=== PATIENT | female | born 2000 | race Two or more races ===

== ENCOUNTER 2024-10-19 18:04 | Emergency (ER) | payer MEDICAID, SELFPAY ==
[2024-10-19 18:14] VITALS: BP 130/86; PULSE 77; RESP 18; TEMP 36.8; O2SAT 99; BMI 19.8
--- NOTE | 2024-10-19 18:33 | EDNOTE_ITS ---
ED Dental RME/HPI General Chief complaint: Dental/Oral/Throat Stated complaint: DENTAL PAIN Time Seen by Provider: 10/19/24 18:25 Arrival date/time: 10/19/24 18:04 24F with no significant PMH presents to ED with several weeks of R lower dental pain. Patient is waiting for referral for root canal. Patient has been taking 800 mg ibuprofen w/o relief. Limitations: no limitations Related Data Allergies Allergy/AdvReac Type Severity Reaction Status Date / Time Penicillins Allergy Mild Rash Verified 09/15/24 07:46 Review of Systems Review of Systems Systems Reviewed: All systems reviewed, normal except as documented Constitutional Constitutional: Reports system reviewed and no additional complaints, except as documented, Denies fever(s) and Denies headache(s) ENT Ears, Nose, Mouth, and Throat: Reports as per HPI, Reports dental pain, Denies disequilibrium and Denies headache(s) Cardiovascular Cardiovascular: Reports system reviewed and no additional complaints, except as documented, Denies chest pain and Denies dyspnea Respiratory Respiratory: Reports system reviewed and no additional complaints, except as documented, Denies cough and Denies dyspnea Gastrointestinal Gastrointestinal: Reports system reviewed and no additional complaints, except as documented, Denies abdominal pain, Denies nausea and Denies vomiting Neurologic Neurologic: Reports system reviewed and no additional complaints, except as documented, Denies confusion, Denies disequilibrium and Denies headache(s) Psychiatric Psychiatric: Denies confusion Past Medical History Past Medical History NEUROLOGIC: Negative Neurological Disorders CARDIAC: Negative Cardiac Disorders or Congestive Heart Failure RESPIRATORY: Negative Chronic Obstructive Pulmonary Disease (COPD) or Asthma GASTROINTESTINAL: Negative Gastrointestinal Disorders or Hepatitis GENITOURINARY: Negative Genitourinary Disorders or Renal Disease REPRODUCTIVE: Negative Pelvic Inflammatory Disease MUSCULOSKELETAL: Negative Musculoskeletal Disorders ENDOCRINE: Negative Endocrine Disorders, Diabetes Mellitus Type 1 or Diabetes Mellitus Type 2 HEMATOLOGIC: Negative Blood Disorders PSYCHO/SOCIAL: Negative Depression, Anxiety or Depression OTHER HISTORY: Positive Hospitalization (apendectomy); Negative Autoimmune Disease, Down Syndrome, Developmental Delay, Shingles, Falls, Anesthesia Reactions, MRSA, VRSA, Vancomycin-Resistant Enterococci, Human Immunodeficiency Virus (HIV), Chicken Pox, Measles, Mumps, Rubella (Niuean Measles), Pertussis, Clostridium Difficile or Cancer Family History FAMILY HISTORY: Positive Family Cardiac Disorders (b rother heart murmer); Negative Family Psychiatric Problems, Family Respiratory Disorders, Family Gastrointestinal Problems, Family Cancer, Family Surgery or Family Anesthesia Reaction Surgical History SURGICAL: Positive Abdominal Surgery; Negative Cardiac Surgery, Endocrine Surgery, Ear Surgery, Nephrectomy, Joint Replacement, Neurologic Surgery or Section Social History SMOKING STATUS: Never smoker SECOND HAND EXPOSURE: No ED Exam General Limitations: Present no limitations General appearance: Present alert and in no apparent distress Head Head exam: Present atraumatic Eye Eye exam: Present normal appearance, PERRL and EOMI ENT ENT exam: Present normal oropharynx and mucous membranes moist Expanded ENT Exam Teeth exam: Present other (fillings) Neck Neck exam: Present normal inspection, full ROM and trachea midline Chest Chest inspection: Present normal inspection and symmetric chest wall rise Respiratory Respiratory exam: Present normal lung sounds bilaterally Cardiovascular Cardiovascular exam: Present regular rate, normal rhythm and normal heart sounds Abdominal Exam Abdominal exam: Present soft and normal bowel sounds Extremities Exam Extremities exam: Present normal inspection and full ROM Back Exam Back exam: Present normal inspection and full ROM Neurological Exam Neurological exam: Present alert, oriented X3 and CN II-XII intact Psychiatric Psychiatric exam: Present normal affect and normal mood Skin Skin exam: Present warm, dry, intact and normal color Course Quality Measures none Orders Category Date Time Status HYDROcodone*/APAP 5/325 [[place] 5/325] Med 10/19/24 18:25 Discontinued 1 tab PO X1 ONE Vital Signs Vital signs: Vital Signs Temperature 98.3 F 10/19/24 18:14 Pulse Rate 77 10/19/24 18:14 Respiratory Rate 18 10/19/24 18:14 Blood Pressure 130/86 H 10/19/24 18:14 Pulse Oximetry (%) 99 10/19/24 18:14 Oxygen Delivery Method Room Air 10/19/24 18:14 O2 at 99% on RA and WNLs Dental / Oral MDM Narrative MDM Narrative:: 24F with no significant PMH presents to ED with several weeks of R lower dental pain. Patient is waiting for referral for root canal. Patient has been taking 800 mg ibuprofen w/o relief. Physical exam reveals dental fillings but no obvious gingival swelling. Patient is afebrile, calm, and alert. Meds and certified genetic counselor given. Patient data External records reviewed:: [facility] previous records Clinical information provided by:: patient Social determinants that could affect healthcare access:: none Patient has the following chronic illnesses:: none How is presenting disease/condition affected by chronic disease/condition?: no chronic disease Evaluation data The following diagnostics were reviewed and interpreted by me:: other (specify) (none) Lab and/or radiology exams considered but not ordered:: not ordered Interpretation Summary: n/a Medications / Prescriptions Medications or Prescriptions considered but not ordered:: ordered Medication administrations:: Medication Administration History Discontinued Medications Hydrocodone Bitart/Acetaminophen (Hydrocodone/Apap 5/325 Tablet) 1 tab PO X1 ONE Stop: 10/19/24 18:26 above Consultations Consultation(s) initiated? (list below): No Diagnosis Dental Differential Diagnosis: gingival abscess, dental caries, toothache, dental abscess, fracture of tooth and aphthous ulcer Most likely diagnosis given after review of the tests above:: dental pain Admission Indicated Admission indicated?: not indicated Admission Request Was there a request for admission?: No Disposition Plan Disposition Plan: Discharge Discharge Attestation Discharge Attestation: The patient and all family members were given an opportunity to ask questions and understood the discharge instructions. Discharge instructions specifically effects, indications for sooner follow up or return to the emergency department, and the expected course of current diagnosis. Patient condition: Stable Discharge Plan Plan Patient Disposition: HOME (Self Care) Disposition Comment: Stable Problem List Clinical Impression: Toothache Patient/Caregiver Discharge Instructions Additional Instructions: Please follow-up with PCP within 24-48 hours and return immediately if symptoms worsen. If need additional opioids, need to see PCP for Rx. Print Language: Bolivian Stand Alone Forms: Patient Portal Info Letter FRANCISCO/WINSOME Supervising Physician FRANCISCO/WINSOME Supervising Physician: Dr. Horta
[2024-10-19] MEDS: HYDROcodone/APAP 5/325 TABLET 1 TAB PO (18:42)
== END 2024-10-19 18:51 | disposition home or self-care (01) ==
PROVIDERS: Emergency Provider Emergency Medicine
DX: K08.89 Other specified disorders of teeth and supporting structures (principal)
CPT/HCPCS: 99283; A9270

== ENCOUNTER 2024-12-07 15:21 | Emergency (ER) | payer MEDICAID, SELFPAY ==
[2024-12-07 15:23] VITALS: BMI 19.8
[2024-12-07 16:23] VITALS: BP 136/83; PULSE 77; RESP 16; TEMP 36.8; O2SAT 100
--- NOTE | 2024-12-07 16:40 | PD.EDHA ---
ED Headache RME/HPI General Chief Complaint: Headache Stated Complaint: HEADACHE Time Seen by Provider: 12/07/24 16:12 Source: patient Arrival date/time: 12/07/24 15:21 This is a 24-year-old female presents to the emergency department with complaints of generalized headache. Does report has had a history of migraine headaches and has not been taking her medication as directed. Denies fever, chills no neck pain no neurologic symptoms. Related Data Previous Rx's ?Medication ?Instructions ?Recorded ibuprofen 600 mg tablet 600 mg PO QID PRN pain #14 tabs 12/14/24 ondansetron 4 mg disintegrating 4 mg PO Q6H PRN nausea and 12/14/24 tablet vomiting #10 tabs Allergies Allergy/AdvReac Type Severity Reaction Status Date / Time Penicillins Allergy Mild Rash Verified 12/14/24 10:30 Review of Systems Review of Systems Systems Reviewed: All systems reviewed, normal except as documented Narrative Review of Systems: Gen: No fever, no chills, no weight loss, + positive headache EYES: No discharge, no visual changes, no pain HEENT: No ear pain, no congestion, no sore throat PULM: No shortness of breath, no cough, no congestion CV: No chest pain, no dyspnea on exertion, no palpitations GI: No nausea, no vomiting, no diarrhea, no pain, no constipation : No frequency, no urgency,? no dysuria Musc/skel: No joint pain, no back pain Skin: No rash? ED Exam Narrative Physical exam: General: Sittiing in Exam table in no acute distress, answering questions appropriately HENT: normocephalic, atraumatic, EOMI, PERRLA, moist mucous membranes Chest: chest wall is nontender Cardiac: regular rate and rhythm, normal S1 and S2, no murmurs, rubs, or gallops, capillary refill ?2 seconds Pulmonary: clear to auscultation bilaterally, no wheezing, crackles, or rhonchi Abdominal: active bowel sounds, soft, nontender, nondistended Neuro: A&OX3, CN II-XII intact, sensation grossly intact bilaterally in UE and LE. Skin: no rashes, no ecchymosis Ext: no lower extremity edema Course Quality Measures none Orders Category Date Time Status Ibuprofen Tab [Motrin Tab] Med 12/07/24 16:39 Discontinued 600 mg PO X1 ONE Vital Signs Vital signs: Vital Signs Temperature 98.2 F 12/07/24 16:23 Pulse Rate 77 12/07/24 16:23 Respiratory Rate 16 12/07/24 16:23 Blood Pressure 136/83 H 12/07/24 16:23 Pulse Oximetry (%) 100 12/07/24 16:23 Oxygen Delivery Method Room Air 12/07/24 16:23 Headache Patient data External records reviewed:: [facility] previous records Clinical information provided by:: patient Social determinants that could affect healthcare access:: none Patient has the following chronic illnesses:: none How is presenting disease/condition affected by chronic disease/condition?: no chronic disease Evaluation data The following diagnostics were reviewed and interpreted by me:: other (specify) Lab and/or radiology exams considered but not ordered:: none Interpretation Summary: none Medications / Prescriptions Medications or Prescriptions considered but not ordered:: none Medication administrations:: Medication Administration History Discontinued Medications Ibuprofen (Ibuprofen Tab 600 Mg Tablet) 600 mg PO X1 ONE Stop: 12/07/24 16:40 Last Admin: 12/07/24 17:41 Dose: Not Given Documented By: Non-Admin Reason: Other, see note All medications administered and effective Consultations Consultation(s) initiated? (list below): No Diagnosis Differential diagnosis headache: migraine, tension headache, headache and sinusitis Most likely diagnosis given after review of the tests above:: Migraine Admission Indicated Admission indicated?: not indicated Explain why admission is indicated or not indicated:: none Admission Request Was there a request for admission?: No Disposition Plan Disposition Plan: Discharge Discharge Attestation Discharge Attestation: The patient and all family members were given an opportunity to ask questions and understood the discharge instructions. Discharge instructions specifically effects, indications for sooner follow up or return to the emergency department, and the expected course of current diagnosis. Patient condition: Stable Discharge Plan Plan Patient Disposition: HOME (Self Care) Patient condition on transfer: Stable Prescriptions/Referrals Prescriptions/Med Rec: No Action ondansetron 4 mg tablet,disintegrating 4 mg PO Q6H PRN (Reason: nausea and vomiting) Qty: 10 0RF ibuprofen 600 mg tablet 600 mg PO QID PRN (Reason: pain) Qty: 14 0RF Problem List Clinical Impression: Migraine Patient/Caregiver Discharge Instructions Discharge Activity: activity as tolerated Education Materials: ED Headache, Migraine, Classic Additional Instructions: - Please you can take [id number] Tylenol reporting for migraine headaches. Please increase fluid intake. Make a appointment with your primary doctor. As discussed you can return to the emergency department for further evaluation or imaging. If you have any worsening symptoms or change in condition. Print Language: Kiswahili Stand Alone Forms: [employer] Award Info., Patient Portal Info Letter PA/[employer]WAIN'[employer] MATE Supervising Physician PA/WINSOME Supervising Physician: Dr. Mijares
== END 2024-12-07 16:52 | disposition home or self-care (01) ==
PROVIDERS: Emergency Provider Emergency Medicine; PCP Nurse Practitioner Family
DX: G43.909 Migraine, unspecified, not intractable, without status migrainosus (principal)
CPT/HCPCS: 99281

== ENCOUNTER 2024-12-14 10:27 | Emergency (ER) | payer MEDICAID, SELFPAY ==
[2024-12-14 10:28] VITALS: BMI 19.8
[2024-12-14 10:34] VITALS: BP 135/90; PULSE 127; RESP 18; TEMP 37.4; O2SAT 99; BMI 19.8
[2024-12-14] MEDS: ONDANSETRON ODT 4 MG TABRAP PO (10:49)
[2024-12-14] MEDS: IBUPROFEN TAB 600 MG TABLET PO (10:50)
--- NOTE | 2024-12-14 10:55 | PD.EDRME ---
Rapid Medical Screening Exam RME Arrival date/time: 12/14/24 10:27 24-year-old female presents emergency department today complains of generalized bodyaches headache and fever since Monday as well as diarrhea ongoing x 1 month Chief Complaint: Flu Like Symptoms Time Seen by Provider: 12/14/24 10:31 Vital signs: Vital Signs Temperature 99.4 F 12/14/24 10:34 Pulse Rate 127 H 12/14/24 10:34 Respiratory Rate 18 12/14/24 10:34 Blood Pressure 135/90 H 12/14/24 10:34 Pulse Oximetry (%) 99 12/14/24 10:34 Oxygen Delivery Method Room Air 12/14/24 10:34
[2024-12-14 11:35] LABS: Basophils % (Auto) 1 % (0-2.5); Eosinophils # (Auto) 0.1 Thou/mm3 (0.0-0.5); Eosinophils % (Auto) 2 % (0-10); Hematocrit 38.1 % (36.0-46.0); Hemoglobin 13.2 g/dL (12.0-16.0); Immature Granulocytes % (Auto) 0 % (0-0); Lymphocytes # (Auto) 0.4 Thou/mm3 (1.0-4.8); Lymphocytes % (Auto) 19 % (10-50); Mean Corpuscular HGB Conc 34.6 g/dl (31.0-37.0); Mean Corpuscular Hemoglobin 30.3 pg (25.0-35.0); Mean Corpuscular Volume 87 fL (80-100); Monocytes # (Auto) 0.3 Thou/mm3 (0.0-0.8); Monocytes % (Auto) 16 % (0-12); Neutrophils # (Auto) 1.3 Thou/mm3 (1.8-7.7); Neutrophils % (Auto) 62 % (37-80); Nucleated Red Blood Cell % 0 /100 WBC (0); Platelet Count 143 Thou/mm3 (140-440); RDW Standard Deviation 37.9 fL (36.4-46.3); Red Blood Count 4.36 Miln/mm3 (4.00-5.20)
[2024-12-14 11:38] LABS: White Blood Count 2.1 Thou/mm3 (3.6-11.0)
[2024-12-14 12:03] LABS: Alanine Aminotransferase 13 U/L (10-49); Albumin, Serum 4.5 gm/dL (3.5-5.0); Albumin/Globulin Ratio 1.4 (1.2-2.2); Alkaline Phosphatase 44 U/L (46-116); Anion Gap 10 (7-16); Aspartate Amino Transferase 15 U/L (0-34); BUN/Creatinine Ratio 8 Ratio (12-20); Bilirubin,Total 0.3 mg/dL (0.3-1.2); Blood Urea Nitrogen 5 mg/dL (9-23); Calcium 9.1 mg/dL (8.3-10.6); Calcium (Corrected) 9.1 mg/dL (8.5-10.1); Carbon Dioxide 24.1 mMol/L (20.0-31.0); Chloride 105 mMol/L (98-107); Creatinine (Component) 0.6 mg/dL (0.6-1.3); Estimated Creatinine Clearance 132.6 mL/min (>60); Globulin 3.2 gm/dL (2.3-3.5); Glucose 94 mg/dL (74-106); Osmolality,Calculated 274 (275-295); Potassium 3.3 mMol/L (3.4-5.1); Sodium 139 mMol/L (136-145); Total Protein 7.7 gm/dL (5.7-8.2); eGFR > 60 See Note
[2024-12-14 13:00] VITALS: BP 124/75; PULSE 98; RESP 18; TEMP 37.2; O2SAT 97
--- NOTE | 2024-12-14 13:10 | PC.NURSE ---
Patient with complaint of nausea and diarrhea for the past week. Patient denies fever. No medical history and does not take meds.
--- NOTE | 2024-12-14 13:30 | EDNOTE_ITS ---
Upper Respiratory Inf. RME/HPI General Chief Complaint: Flu Like Symptoms Stated Complaint: BODYACHES AND CHILLS SINCE MONDAY Time Seen by Provider: 12/14/24 10:31 Arrival date/time: 12/14/24 10:27 This is a 24-year-old female that is brought in by mother with complaints of generalized bodyaches, weakness, headache, fever, diarrhea, vomiting that started 5 days ago. Patient reports no sick contacts. Patient reports she has had diarrhea on and off for the last month. Patient has a history of appendectomy in the past. RME / HPI RME / HPI Narrative: 12/14/24 10:27 24-year-old female presents emergency department today complains of generalized bodyaches headache and fever since Monday as well as diarrhea ongoing x 1 month Related Data Previous Rx's ?Medication ?Instructions ?Recorded ibuprofen 600 mg tablet 600 mg PO QID PRN pain #14 t abs 12/14/24 ondansetron 4 mg disintegrating 4 mg PO Q6H PRN nausea and 12/14/24 tablet vomiting #10 tabs Allergies Allergy/AdvReac Type Severity Reaction Status Date / Time Penicillins Allergy Mild Rash Verified 12/14/24 10:30 Review of Systems Review of Systems Systems Reviewed: All systems reviewed, normal except as documented Past Medical History Past Medical History NEUROLOGIC: Negative Neurological Disorders CARDIAC: Negative Cardiac Disorders or Congestive Heart Failure RESPIRATORY: Negative Chronic Obstructive Pulmonary Disease (COPD) or Asthma GASTROINTESTINAL: Negative Gastrointestinal Disorders or Hepatitis GENITOURINARY: Negative Genitourinary Disorders or Renal Disease REPRODUCTIVE: Negative Pelvic Inflammatory Disease MUSCULOSKELETAL: Negative Musculoskeletal Disorders ENDOCRINE: Negative Endocrine Disorders, Diabetes Mellitus Type 1 or Diabetes Mellitus Type 2 HEMATOLOGIC: Negative Blood Disorders PSYCHO/SOCIAL: Negative Depression, Anxiety or Depression OTHER HISTORY: Positive Hospitalization (apendectomy); Negative Autoimmune Disease, Down Syndrome, Developmental Delay, Shingles, Falls, Anesthesia Reactions, MRSA, VRSA, Vancomycin-Resistant Enterococci, Human Immunodeficiency Virus (HIV), Chicken Pox, Measles, Mumps, Rubella ([place]anese Measles), Pertussis, Clostridium Difficile or Cancer Family History FAMILY HISTORY: Positive Family Cardiac Disorders (b rother heart murmer); Negative Family Psychiatric Problems, Family Respiratory Disorders, Family Gastrointestinal Problems, Family Cancer, Family Surgery or Family Anesthesia Reaction Surgical History SURGICAL: Positive Abdominal Surgery; Negative Cardiac Surgery, Endocrine Surgery, Ear Surgery, Nephrectomy, Joint Replacement, Neurologic Surgery or Section Social History SMOKING STATUS: Never smoker SECOND HAND EXPOSURE: No ED Exam General General appearance: Present alert and in no apparent distress Head Head exam: Present atraumatic Eye Eye exam: Present normal appearance, PERRL and EOMI ENT ENT exam: Present normal exam, normal oropharynx and mucous membranes moist Neck Neck exam: Present normal inspection, full ROM and trachea midline Chest Chest inspection: Present normal inspection and symmetric chest wall rise Respiratory Respiratory exam: Present normal lung sounds bilaterally Cardiovascular Cardiovascular exam: Present regular rate, normal rhythm and normal heart sounds Abdominal Exam Abdominal exam: Present soft Extremities Exam Extremities exam: Present normal inspection and full ROM Back Exam Back exam: Present normal inspection and full ROM Neurological Exam Neurological exam: Present alert, oriented X3 and CN II-XII intact Psychiatric Psychiatric exam: Present normal affect and normal mood Skin Skin exam: Present warm, dry, intact and normal color Course Quality Measures none Orders Category Date Time Status Bedside COVID-19 Antigen Test NOW Care 12/14/24 10:38 Completed Bedside Influenza A&B Antigen Test NOW Care 12/14/24 10:38 Completed IV [Insert IV] STAT Care 12/14/24 14:19 Completed CBC Stat Lab 12/14/24 11:08 Completed CMP [Comprehensive Metabolic Panel] Stat Lab 12/14/24 11:08 Completed HCG Qualitative,Urine Stat Lab 12/14/24 14:00 Completed Mineral Screen Stat Lab 12/14/24 11:08 Completed UA, C/S IF [Urinalysis, C/S if Indicated] Stat Lab 12/14/24 14:00 Completed Ibuprofen Tab [Motrin Tab] Med 12/14/24 10:38 Discontinued 600 mg PO X1 ONE Ondansetron Odt [Zofran Odt] Med 12/14/24 10:38 Discontinued 4 mg PO X1 ONE Sodium Chloride 0.9% 1000 ml [Ns] 1,000 ml Med 12/14/24 14:19 Discontinued IV 999 mls/hr Sodium Chloride 0.9% 500 ml [Ns] 500 ml Med 12/14/24 13:42 Discontinued IV 999 mls/hr Vital Signs Vital signs: Vital Signs Temperature 99.4 F 12/14/24 10:34 Pulse Rate 127 H 12/14/24 10:34 Respiratory Rate 18 12/14/24 10:34 Blood Pressure 135/90 H 12/14/24 10:34 Pulse Oximetry (%) 99 02/01/25 10:34 Oxygen Delivery Method Room Air 12/14/24 10:34 Upper Respiratory Infection MDM Narrative MDM Narrative:: I spoke to patient and mother at length. Patient felt better with Zofran and ibuprofen given to her earlier. Patient given a liter of fluid with improvement of symptoms of weakness. I reviewed labs with patient. Patient's white cells are low. We checked monspot and it was positive which could be culprit of low wbc. I told patient to hydrate and rest at home. Come back to ED if symotoms change or worsen. Patient data External records reviewed:: [facility] previous records Clinical information provided by:: patient Social determinants that could affect healthcare access:: none Patient has the following chronic illnesses:: none How is presenting disease/condition affected by chronic disease/condition?: no chronic disease Evaluation data The following diagnostics were reviewed and interpreted by me:: lab results Lab and/or radiology exams considered but not ordered:: see note Interpretation Summary: none Medications / Prescriptions Medications or Prescriptions considered but not ordered:: none Medication administrations:: Medication Administration History Discontinued Medications Sodium Chloride (Ns) 500 mls @ 999 mls/hr IV .Q31M ONE Stop: 12/14/24 14:12 Last Admin: 12/14/24 14:18 Dose: Not Given Documented By: DO Non-Admin Reason: Cancelled by Provider Sodium Chloride (Ns) 1,000 mls @ 999 mls/hr IV .Q1H1M ONE Stop: 12/14/24 15:19 Last Infusion: 12/14/24 16:00 Dose: Infused Documented By: Admin: 12/14/24 14:38 Dose: 999 mls/hr Documented By: DO Ibuprofen (Ibuprofen Tab 600 Mg Tablet) 600 mg PO X1 ONE Stop: 12/14/24 10:39 Last Admin: 12/14/24 10:50 Dose: 600 mg Documented By: DO Ondansetron HCl (Ondansetron Odt 4 Mg Tabrap) 4 mg PO X1 ONE; Protocol Stop: 12/14/24 10:39 Last Admin: 12/14/24 10:49 Dose: 4 mg Documented By: DO see mar Consultations Consultation(s) initiated? (list below): No Diagnosis Upper Respiratory Differential Diagnosis: upper respiratory infection, croup, otitis media, viral infection, influenza and other (mono) Most likely diagnosis given after review of the tests above:: mono Admission Indicated Admission indicated?: not indicated Admission Request Was there a request for admission?: No Disposition Plan Disposition Plan: Discharge Discharge Attestation Discharge Attestation: The patient and all family members were given an opportunity to ask questions and understood the discharge instructions. Discharge instructions specifically effects, indications for sooner follow up or return to the emergency department, and the expected course of current diagnosis. Patient condition: Stable Discharge Plan Plan Patient Disposition: HOME (Self Care) Patient condition on transfer: Stable Prescriptions/Referrals Prescriptions/Med Rec: New ondansetron 4 mg tablet,disintegrating 4 mg PO Q6H PRN (Reason: nausea and vomiting) Qty: 10 0RF ibuprofen 600 mg tablet 600 mg PO QID PRN (Reason: pain) Qty: 14 0RF Referrals: Alycia Pedraza PA-C [Primary Care Provider] - In 1 week Problem List Clinical Impression: Weakness, Leukopenia, Vomiting, Upper respiratory infection, viral, Mononucleosis Patient/Caregiver Discharge Instructions Discharge Activity: activity as tolerated Education Materials: Self-Care for Vomiting and Diarrhea, ED Mononucleosis Additional Instructions: Follow-up with primary provider in 1 to 2 days. Come back to the emergency room if symptoms change or worsen. Drink plenty of fluids. Print Language: Hebrew Stand Alone Forms: Renee Award Info., Patient Portal Info Letter FRANCISCO/WINSOME Supervising Physician DAVID Supervising Physician: darian
[2024-12-14 14:20] LABS: Collection Type, Urine Clean Catch
[2024-12-14 14:31] LABS: Bilirubin,Urine Negative (Negative); Blood,Urine 3+ (Negative); Clarity,Urine Turbid (Clear/Hazy); Color,Urine Yellow (Lt Yel-Yel); Culture Indicated,Urine Not Indicated; Glucose, Urine Negative (Negative); Ketones,Urine Trace (Negative); Leukocyte Esterase,Urine Positive (Negative); Nitrite,Urine Negative (Negative); PH,Urine 6.5 (5.0-7.0); Protein,Urine 1+ (Neg - Trace); RBC,Urine 5 /hpf (0-3); Specific Gravity,Urine 1.024 (1.001-1.035); Squamous Epithelial Cell,Urine 9 /hpf (0-5); Urobilinogen,Urine Negative mg/dL (0.0-1.0); WBC,Urine 4 /hpf (0-5)
[2024-12-14 14:32] LABS: HCG Qualitative,Urine Negative
[2024-12-14] MEDS: SODIUM CHLORIDE 0.9% 1000 ML 1,000 ML 999 ML IV (14:38)
[2024-12-14 15:57] LABS: Mono Screen Positive (Negative)
== END 2024-12-14 17:02 | disposition home or self-care (01) ==
PROVIDERS: Nurse Practitioner Family; Nurse Practitioner Primary Care; Emergency Provider Emergency Medicine; PCP Physician Assistant
DX: B27.90 Infectious mononucleosis, unspecified without complication (principal); D72.819 Decreased white blood cell count, unspecified
CPT/HCPCS: 36415; 80053; 81001; 81025; 85025; 86308; 87400; 87811; 96360; 99284; J7030; Q0162; A9270

== ENCOUNTER 2025-10-25 20:45 | Emergency (ER) | payer MEDICAID, SELFPAY ==
[2025-10-25 20:45] VITALS: BMI 19.5
[2025-10-25 21:00] VITALS: BP 121/87; PULSE 112; RESP 16; TEMP 39.5; O2SAT 97
--- NOTE | 2025-10-25 21:06 | XR_ITS ---
EXAMINATION: AP chest single view TECHNIQUE: AP portable upright chest single view Date and time: May 25, 2025, 2119 hours INDICATIONS: Shortness of breath today. FINDINGS: Normal heart size Lungs are clear. Osseous structures are intact IMPRESSION: No active disease
[2025-10-25 21:30] VITALS: TEMP 39.5
[2025-10-25 21:30] LABS: Lactate (Lactic Acid) 1.4 mMol/L (0.4-2.0)
[2025-10-25] MEDS: IBUPROFEN TAB 600 MG TABLET PO (21:30)
[2025-10-25] MEDS: ACETAMINOPHEN 325 MG TABLET 650 MG PO (21:30)
[2025-10-25 21:31] LABS: Basophils # (Auto) 0.0 Thou/mm3 (0.0-0.2); Basophils % (Auto) 0 % (0-2.5); Eosinophils # (Auto) 0.1 Thou/mm3 (0.0-0.5); Eosinophils % (Auto) 1 % (0-10); Hematocrit 39.2 % (36.0-46.0); Hemoglobin 13.3 g/dL (12.0-16.0); Immature Granulocytes Auto 0.03 Thou/mm3 (0.00-0.00); Lymphocytes # (Auto) 1.1 Thou/mm3 (1.0-4.8); Lymphocytes % (Auto) 16 % (10-50); Mean Corpuscular HGB Conc 33.9 g/dl (31.0-37.0); Mean Corpuscular Hemoglobin 30.2 pg (25.0-35.0); Mean Corpuscular Volume 89 fL (80-100); Monocytes # (Auto) 0.7 Thou/mm3 (0.0-0.8); Monocytes % (Auto) 10 % (0-12); Neutrophils # (Auto) 5.1 Thou/mm3 (1.8-7.7); Neutrophils % (Auto) 72 % (37-80); Nucleated Red Blood Cell # 0.00 Thou/mm3 (0.00-0.00); Nucleated Red Blood Cell % 0 /100 WBC (0); Platelet Count 208 Thou/mm3 (140-440); RDW Standard Deviation 37.0 fL (36.4-46.3); Red Blood Count 4.41 Miln/mm3 (4.00-5.20); White Blood Count 7.1 Thou/mm3 (3.6-11.0)
[2025-10-25] MEDS: SODIUM CHLORIDE 0.9% 1000 ML 1,000 ML 999 ML IV (21:42)
[2025-10-25] MEDS: cefTRIAXone 2 GM in SODIUM CHLORIDE 0.9% (Popper) 50 ML IV (21:53)
[2025-10-25 21:54] LABS: Alanine Aminotransferase < 7 U/L (10-49); Albumin, Serum 5.0 gm/dL (3.5-5.0); Albumin/Globulin Ratio 1.6 (1.2-2.2); Alkaline Phosphatase 46 U/L (46-116); Anion Gap 11 (7-16); Aspartate Amino Transferase 23 U/L (0-34); BUN/Creatinine Ratio 10 Ratio (12-20); Bilirubin,Total 0.5 mg/dL (0.3-1.2); Blood Urea Nitrogen 7 mg/dL (9-23); Calcium 9.3 mg/dL (8.3-10.6); Calcium (Corrected) 9.3 mg/dL (8.5-10.1); Carbon Dioxide 22.6 mMol/L (20.0-31.0); Chloride 103 mMol/L (98-107); Creatinine (Component) 0.7 mg/dL (0.6-1.3); Estimated Creatinine Clearance 110.9 mL/min (>60); Globulin 3.1 gm/dL (2.3-3.5); Glucose 93 mg/dL (74-106); Osmolality,Calculated 271 (275-295); Potassium 4.2 mMol/L (3.4-5.1); Sodium 137 mMol/L (136-145); Total Protein 8.1 gm/dL (5.7-8.2); eGFR > 60 See Note
[2025-10-25 22:13] LABS: Mono Screen Negative (Negative)
[2025-10-25 22:54] VITALS: BP 102/62; PULSE 106; RESP 16; TEMP 37.4; O2SAT 97
[2025-10-25 22:55] VITALS: TEMP 37.4
--- NOTE | 2025-10-25 23:21 | PD.EDFEVER ---
ED Fever RME/HPI General Chief Complaint: Fever Stated Complaint: FEVER Time Seen by Provider: 10/25/25 20:51 Arrival date/time: 10/25/25 20:45 This is a case of 25-year-old female with history of mononucleosis came in in the emergency room due to on and off fever of 102 at home associated with sore throat and productive cough denies any urinary symptoms but with lower back pain patient denies any injury or trauma denies any abdominal pain nausea vomiting no drooling of saliva no hoarseness of voice no shortness of breath no chest pain Limitations: no limitations Related Data Previous Rx's ?Medication ?Instructions ?Recorded ibuprofen 600 mg tablet 600 mg PO QID PRN pain #14 tabs 12/14/24 ondansetron 4 mg disintegrating 4 mg PO Q6H PRN nausea and 12/14/24 tablet vomiting #10 tabs clarithromycin 500 mg tablet 500 mg PO BID 10 days #20 tabs 10/25/25 ibuprofen 800 mg tablet 800 mg PO Q8H PRN pain #20 tabs 10/25/25 lidocaine HCl 2 % mucosal solution 10 ml PO Q4HR PRN mouth pain #100 10/25/25 (Lidocaine Viscous) mL Allergies Allergy/AdvReac Type Severity Reaction Status Date / Time Penicillins Allergy Mild Rash Verified 12/14/24 10:30 Review of Systems Review of Systems Systems Reviewed: All systems reviewed, normal except as documented Constitutional Constitutional: Reports system reviewed and no additional complaints, except as documented and Reports as per HPI ENT Ears, Nose, Mouth, and Throat: Reports system reviewed and no additional complaints, except as documented and Reports as per HPI Cardiovascular Cardiovascular: Reports system reviewed and no additional complaints, except as documented and Reports as per HPI Respiratory Respiratory: Reports system reviewed and no additional complaints, except as documented and Reports as per HPI Gastrointestinal Gastrointestinal: Reports system reviewed and no additional complaints, except as documented and Reports as per HPI Musculoskeletal Musculoskeletal: Reports system reviewed and no additional complaints, except as documented and Reports as per HPI Neurologic Neurologic: Reports system reviewed and no additional complaints, except as documented and Reports as per HPI Past Medical History Past Medical History NEUROLOGIC: Negative Neurological Disorders CARDIAC: Negative Cardiac Disorders or Congestive Heart Failure RESPIRATORY: Negative Chronic Obstructive Pulmonary Disease (COPD) or Asthma GASTROINTESTINAL: Negative Gastrointestinal Disorders or Hepatitis GENITOURINARY: Negative Genitourinary Disorders or Renal Disease REPRODUCTIVE: Negative Pelvic Inflammatory Disease MUSCULOSKELETAL: Negative Musculoskeletal Disorders ENDOCRINE: Negative Endocrine Disorders, Diabetes Mellitus Type 1 or Diabetes Mellitus Type 2 HEMATOLOGIC: Negative Blood Disorders PSYCHO/SOCIAL: Negative Depression, Anxiety or Depression OTHER HISTORY: Positive Hospitalization (apendectomy); Negative Autoimmune Disease, Down Syndrome, Developmental Delay, Shingles, Falls, Anesthesia Reactions, MRSA, VRSA, Vancomycin-Resistant Enterococci, Human Immunodeficiency Virus (HIV), Chicken Pox, Measles, Mumps, Rubella ([place] Measles), Pertussis, Clostridium Difficile or Cancer Family History FAMILY HISTORY: Positive Family Cardiac Disorders (b rother heart murmer); Negative Family Psychiatric Problems, Family Respiratory Disorders, Family Gastrointestinal Problems, Family Cancer, Family Surgery or Family Anesthesia Reaction Surgical History SURGICAL: Positive Abdominal Surgery; Negative Cardiac Surgery, Endocrine Surgery, Ear Surgery, Nephrectomy, Joint Replacement, Neurologic Surgery or Section Social History SMOKING STATUS: Never smoker SECOND HAND EXPOSURE: No Physical Exam General Limitations: no limitations General appearance: alert, in no apparent distress and other (Patient is awake alert oriented not in distress nontoxic looking well-hydrated well nourished) Head Head exam: atraumatic, normocephalic and normal inspection Eye Eye exam: Present normal appearance, PERRL and EOMI ENT ENT exam: Present normal exam, normal oropharynx, mucous membranes moist and other (Nose and ear exam normal bilateral tonsils were swollen red with exudate in the right no drooling of saliva no muffled voice no hot potato voice no peritonsillar abscess no Artemio's angina) Neck Neck exam: Present normal inspection, full ROM, trachea midline and lymphadenopathy (Lymphadenopathy on the right anterior neck negative for meningeal sign); Absent tenderness, meningismus or thyromegaly Chest Chest inspection: Present normal inspection and symmetric chest wall rise; Absent tenderness Respiratory Respiratory exam: Present normal lung sounds bilaterally and other; Absent respiratory distress, wheezes, stridor, accessory muscle use or prolonged expiratory phase Cardiovascular Cardiovascular exam: Present regular rate, normal rhythm and normal heart sounds; Absent bradycardia, tachycardia, irregular rhythm, systolic murmur or diastolic murmur Abdominal Exam Abdominal exam: Present soft and normal bowel sounds; Absent distention, tenderness, guarding, rebound, rigidity, diminished bowel sounds, hyperactive bowel sounds, hypoactive bowel sounds or organomegaly Extremities Exam Extremities exam: Present normal inspection and full ROM Back Exam Back exam: Present normal inspection and full ROM Neurological Exam Neurological exam: Present alert, oriented X3, CN II-XII intact, normal gait and reflexes normal; Absent motor sensory deficit Psychiatric Psychiatric exam: Present normal affect and normal mood Skin Skin exam: Present warm, dry, intact, normal color and other (Excellent skin turgor) ED Exam General Limitations: Present no limitations General appearance: Present alert, in no apparent distress and other (Patient is awake alert oriented not in distress nontoxic looking well-hydrated well nourished) Head Head exam: Present atraumatic, normocephalic and normal inspection Eye Eye exam: Present normal appearance, PERRL and EOMI ENT ENT exam: Present normal exam, normal oropharynx, mucous membranes moist and other (Nose and ear exam normal bilateral tonsils were swollen red with exudate in the right no drooling of saliva no muffled voice no hot potato voice no peritonsillar abscess no Artemio's angina) Neck Neck exam: Present normal inspection, full ROM, trachea midline and lymphadenopathy (Lymphadenopathy on the right anterior neck negative for meningeal sign); Absent tenderness, meningismus or thyromegaly Chest Chest inspection: Present normal inspection and symmetric chest wall rise; Absent tenderness Respiratory Respiratory exam: Present normal lung sounds bilaterally and other; Absent respiratory distress, wheezes, stridor, accessory muscle use or prolonged expiratory phase Cardiovascular Cardiovascular exam: Present regular rate, normal rhythm and normal heart sounds; Absent bradycardia, tachycardia, irregular rhythm, systolic murmur or diastolic murmur Abdominal Exam Abdominal exam: Present soft and normal bowel sounds; Absent distention, tenderness, guarding, rebound, rigidity, diminished bowel sounds, hyperactive bowel sounds, hypoactive bowel sounds or organomegaly Extremities Exam Extremities exam: Present normal inspection and full ROM Back Exam Back exam: Present normal inspection and full ROM Neurological Exam Neurological exam: Present alert, oriented X3, CN II-XII intact, normal gait and reflexes normal; Absent motor sensory deficit Psychiatric Psychiatric exam: Present normal affect and normal mood Skin Skin exam: Present warm, dry, intact, normal color and other (Excellent skin turgor) Course Quality Measures none Orders Category Date Time Status Bedside COVID-19 Antigen Test NOW Care 10/25/25 21:06 Active Bedside Influenza A&B Antigen Test NOW Care 10/25/25 21:06 Completed Bedside STREP Test NOW Care 10/25/25 21:08 Completed Insert IV STAT Care 10/25/25 21:41 Active XR chest 1V Stat Exams 10/25/25 21:06 Completed Blood Culture (Lab) Stat Lab 10/25/25 21:40 Received CBC Stat Lab 10/25/25 21:24 Completed CMP [Comprehensive Metabolic Panel] Stat Lab 10/25/25 21:24 Completed Lactic Acid [Lactate (Lactic Acid)] Stat Lab 10/25/25 21:24 Completed [place] Screen Stat Lab 10/25/25 21:24 Completed Acetaminophen Tab [Tylenol Tab] Med 10/25/25 21:08 Discontinued 650 mg PO X1 ONE Ibuprofen Tab [Motrin Tab] Med 10/25/25 21:08 Discontinued 600 mg PO X1 ONE Sodium Chloride 0.9% 1000 ml [Ns] 1,000 ml Med 10/25/25 21:15 Discontinued IV 999 mls/hr cefTRIAXone [Rocephin] 2 gm Med 10/25/25 21:15 Discontinued SODIUM CHLORIDE 0.9% (Popper) [Ns 0.9% (P)] 50 ml IV X1 Vital Signs Vital signs: Vital Signs Temperature 103.1 F H 10/25/25 21:00 Pulse Rate 112 H 10/25/25 21:00 Respiratory Rate 16 10/25/25 21:00 Blood Pressure 121/87 H 10/25/25 21:00 Pulse Oximetry (%) 97 10/25/25 21:00 Oxygen Delivery Method Room Air 10/25/25 21:00 Oxygen saturation 97% in room air Fever MDM Narrative MDM Narrative:: This is a case of 25-year-old female with history of mononucleosis came in in the emergency room due to on and off fever of 102 at home associated with sore throat and productive cough denies any urinary symptoms but with lower back pain patient denies any injury or trauma denies any abdominal pain nausea vomiting no drooling of saliva no hoarseness of voice no shortness of breath no chest pain physical examination patient vital signs noted tachycardic and febrile thus a code sepsis was called patient is not tachypneic not hypoxic oxygen saturation is ranging 96 to 98% BP stable patient is awake alert oriented not in distress nontoxic looking well-hydrated negative for meningeal sign HEENT exam showed nose and ears were normal bilateral tonsils were swollen red with exudate on the right tonsil no drooling of saliva no peritonsillar abscess no Artemio's Centor criteria 1/4 no muffled voice no hot potato voice patient have lymphadenopathy on the right anterior neck negative for meningeal sign lung sounds no crackles no wheezing no rhonchi no retraction no stridor abdominal exam is benign nonsurgical no guarding no rebound no rigidity neurological exam normal awake alert oriented x 4 no focal deficit GCS 15/15 steady gait blood test showed no leukocytosis lactic acid is normal thus patient is not having no anemia kidney and liver function is normal no electrolyte imbalance urinalysis not done per patient request chest x-ray is normal patient denies initially patient was given a bolus of 1 L normal saline and ceftriaxone 2 g patient states that she had allergy to penicillin when she is a child I discussed with the patient regarding the thing ceftriaxone treatment and still agreed patient was continually monitored for any allergic reaction and no allergic reaction noted based on my physical examination and history patient fever is due to strep throat patient was discharged with clarithromycin 500 mg twice a day lidocaine viscous for sore throat and ibuprofen for pain patient will continue to monitor her condition at home continue to monitor temperature at home for any fever she will take Motrin Tylenol warm saline care earlier keep hydrated she will follow-up with PCP in 2 days for reevaluation and for any worsening symptoms or any emergent concern return precaution in the ER is advised Patient was discharged with comfortable condition walking with stable gait. Patient verbalized no further complains explained diagnosis and answered patient question. Patient is comfortable with the proposed management plan including the need to follow up with his/her primary care physician and any specialist if applicable Discussed patient for any urgent condition or worsening sx, He/She needed to go to emergency room immediately or call 911. Patient acknowledge the responsibility to follow up as instructed and to monitor her/his symptoms. For any persistence of the symptoms for more than 3-5 days return precaution advised. Discussed the result of the test and was given printed discharge instruction Patient data External records reviewed:: [facility] previous records Clinical information provided by:: patient Social determinants that could affect healthcare access:: none Patient has the following chronic illnesses:: None How is presenting disease/condition affected by chronic disease/condition?: no chronic disease Evaluation data The following diagnostics were reviewed and interpreted by me:: lab results and radiology exam(s) Lab and/or radiology exams considered but not ordered:: Reviewed Interpretation Summary: Reviewed Medications / Prescriptions Medications or Prescriptions considered but not ordered:: Given Medication administrations:: Medication Administration History Discontinued Medications Acetaminophen (Acetaminophen 325 Mg Tablet) 650 mg PO X1 ONE Stop: 10/25/25 21:09 Last Admin: 10/25/25 21:30 Dose: 650 mg Documented By: Sodium Chloride (Ns) 1,000 mls @ 999 mls/hr IV .Q1H1M ONE Stop: 10/25/25 22:15 Last Infusion: 10/25/25 22:37 Dose: Infused Documented By: Admin: 10/25/25 21:42 Dose: 999 mls/hr Documented By: BD Ceftriaxone Sodium 2 gm/ (Sodium Chloride) 50 mls @ 100 mls/hr IV X1 ONE Stop: 10/25/25 21:44 Last Infusion: 10/25/25 22:36 Dose: Infused Documented By: Admin: 10/25/25 21:53 Dose: 100 mls/hr Documented By: BD Ibuprofen (Ibuprofen Tab 600 Mg Tablet) 600 mg PO X1 ONE Stop: 10/25/25 21:09 Last Admin: 10/25/25 21:30 Dose: 600 mg Documented By: Given Consultations Consultation(s) initiated? (list below): No Diagnosis Fever Differential Diagnosis: fever of unknown origin, gastroenteritis, community acquired pneumonia, pyelonephritis, viral infection, sepsis and influenza Most likely diagnosis given after review of the tests above:: Strep throat Admission Indicated Admission indicated?: not indicated Explain why admission is indicated or not indicated:: Not indicated Admission Request Was there a request for admission?: No Admission Attestation Admission request attestation: Not indicated Disposition Plan Disposition Plan: Discharge Discharge Attestation Discharge Attestation: The patient and all family members were given an opportunity to ask questions and understood the discharge instructions. Discharge instructions specifically effects, indications for sooner follow up or return to the emergency department, and the expected course of current diagnosis. Patient condition: Stable Discharge Plan Plan Patient Disposition: HOME (Self Care) Patient condition on transfer: Stable Prescriptions/Referrals Prescriptions/Med Rec: New clarithromycin 500 mg tablet 500 mg PO BID 10 Days Qty: 20 0RF ibuprofen 800 mg tablet 800 mg PO Q8H PRN (Reason: pain) Qty: 20 0RF lidocaine HCl [Lidocaine Viscous] 2 % solution 10 ml PO Q4HR PRN (Reason: mouth pain) Qty: 100 0RF No Action ondansetron 4 mg tablet,disintegrating 4 mg PO Q6H PRN (Reason: nausea and vomiting) Qty: 10 0RF ibuprofen 600 mg tablet 600 mg PO QID PRN (Reason: pain) Qty: 14 0RF Referrals: No Primary/Family,Physician [Primary Care Provider] - In 1 week Problem List Clinical Impression: Fever, Strep throat, Cough, Back muscle spasm Patient/Caregiver Discharge Instructions Education Materials: ED Cough Chronic Uncertain Cause Adult, ED FUO Adult, ED Muscle Spasm, ED Pharyngitis, Strep (Confirmed) Additional Instructions: Follow-up with your primary care physician in 2 days for reevaluation worsening symptoms or any emergent concern call 911 or go to the nearest emergency room take your medication as directed keep hydrated increase water intake keep hydrated Pedialyte Gatorade for hydration warm saline gargle take temperature every 4-6 hours and give Tylenol or Motrin as needed for fever or pain Print Language: Spanish Stand Alone Forms: Renee Award Info., Patient Portal Info Letter PA/BUSINESS OPERATIONS MANAGER Supervising Physician PA/BUSINESS OPERATIONS MANAGER Supervising Physician: Dr. Zepeda
== END 2025-10-25 23:37 | disposition home or self-care (01) ==
PROVIDERS: Nurse Practitioner Family; Emergency Provider Emergency Medicine
DX: J02.0 Streptococcal pharyngitis (principal); M62.830 Muscle spasm of back; R05.9 Cough, unspecified
CPT/HCPCS: 36415; 71045; 80053; 81001; 81025; 83605; 85025; 86308; 87040; 87502; 87635; 87651; 96365; 99283; J0696; J7030; J7050; A9270